=== PATIENT | female | born 1980 | race Caucasian/White ===

== ENCOUNTER 2024-02-09 12:38 | Emergency (ER) | payer MEDICARE, MEDICAID, SELFPAY ==
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
[2024-02-09 12:49] VITALS: BP 139/81; PULSE 88; RESP 15; TEMP 36.9; O2SAT 98
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
[2024-02-09 13:24] LABS: Bilirubin Negative (Negative); Blood Negative (Negative); Clarity Clear (Clear); Glucose Negative (Negative); Ketones Negative (Negative); Leukocyte Esterase Negative (Negative); Nitrite Negative (Negative); Urobilinogen 0.2 mg/dL (Up to 0.2); pH 6.5 (5-8)
[2024-02-09] MEDS: diazePAM 5 MG TAB PO (13:24)
[2024-02-09] MEDS: Pantoprazole 40 MG TABCR PO (13:24)
[2024-02-09] MEDS: PARoxetine 10 MG TAB PO (13:25)
--- NOTE | 2024-02-09 14:16 | NUR.NOTE ---
[facility] #[phone] Giana Laughlin #[phone] ([place]) #[phone] [email or web address] [facility] [phone]
[2024-02-09] MEDS: Buprenorphine/Naloxone 8 mg/2 mg FILM 3 EACH SL (15:07)
--- NOTE | 2024-02-09 15:35 | NUR.NOTE ---
Addendum entered by Anmol Jones RN 02/09/24 16:12: Attempted to DC patient again after she had agreed to come back tomorrow. When I went into the room to go over DC instructions, [facility] and pt both stated taxis and RCT were closed tomorrow so pt would not be able to get back to the ED. I attempted to discuss with the patient that we do not have the ability to arrange transport for her. The patient became frustrated again, stated she cannot leave until we figure out a way for her to get her medications. I attempted to explain (again) that we are the ER and that outside services are why we got [facility] involved (present) for them to assist with services. The patient stated she cannot produce a pharmacy and stated she wanted to speak with the provider again. Provider aksed for care management to consult (again). Care management was initially asked to consult sj the pt first arrived and requested we go through [facility]. [facility] attendant stated to RN that the patient would like to leave. Pt came out of the room, requested to leave and stated she would manipulate my way back here in the morning. She asked for my name, I responded Dilip. I informed the pt that Care management had been consulted. She stated I never told her that. I informed her we initially asked for a consult, they requested we go through [facility], who we got in here to get her services. I explained that since the services from [facility] (R[facility]/transport/taxi) were not going to [place] out for tomorrow, we were trying to see if care management could help. Pt stated she wasn't informed that we called these services. i told her that is because we just contacted them for the second time after I left the room when she refused the DC #2 and that was just a couple minutes ago and were waiting for them to contact us back. the patient asked the [facility] worker what do you want me to do? The [facility] worker explained that she cannot make decisions for her. She stated she [facility], but are technically not supposed to transport people and they cannot bring her to the motel. Pt stated Ill just take the ride. Pt took DC paperwork and left. Care management called shortly after to follow up on 2nd consult request and was informed the pt had been discharged. Anmol Jones, MOISEN, RN Original Note: Attempted to DC patient with [facility] who was called to assist with housing/geriatric social work professor. Pt became angry because she does not have transportation to and from the pharmacy. She also is upset that the provider would not prescribe her suboxone to go home with. Pt was informed she could return to the ED tomorrow for other doses, but insists she has no transportation. It was explained that [facility] is here (in room) and we need to rely on ancillary services for external social support. Pt stated she wanted crisis and would say whatever I need to say to be hospitalized. Attempted to iterate to pt that we are an ER and we cannot provide her transport services to and from pharmacies. Pt stated she did not feel comfortable leaving without her regular medications. I attempted to explain the provider has given her enough of her regular meds for 30 days, her diazepam for 4 days, and the provider was not willing to send her home with suboxone, but she could return tomorrow for it. The patient became escalated and accused ED staff of negotiating her medication. I informed her we do not negotiate medications and felt her behavior was manipulative, and we will not respond to that. Pt stated she wanted crisis and I reported this to MD who then ordered [facility] consult. [facility] arrived, pt stated she did not want crisis and wanted to leave with [facility]. Pt did not screen for HI/SI or any risk for harm, and was leaving with [facility] support person. Pt will return to ED tomorrow for suboxone medication administration. YVETTE Roberts, RN Nursing Note:
== END 2024-02-09 15:56 | disposition home or self-care (01) ==
PROVIDERS: Emergency Provider Emergency Medicine
DX: Z76.0 Encounter for issue of repeat prescription (principal); Z59.812 Housing instability, housed, homelessness in past 12 months; Z53.29 Procedure and treatment not carried out because of patient's decision for other reasons
CPT/HCPCS: 99282; 81003

== ENCOUNTER 2024-02-10 10:15 | Emergency (ER) | payer MEDICARE, MEDICAID, SELFPAY ==
[2024-02-10 10:14] VITALS: BP 150/101; PULSE 99; RESP 16; TEMP 36.8; O2SAT 95
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
[2024-02-10] MEDS: Buprenorphine/Naloxone 12 mg/3 mg FILM 1 EACH SL ×4 (10:46→11:51)
[2024-02-10] MEDS: diazePAM 5 MG TAB PO (10:47)
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
== END 2024-02-10 11:54 | disposition home or self-care (01) ==
PROVIDERS: Emergency Provider Physician Assistant
DX: Z76.0 Encounter for issue of repeat prescription (principal); Z59.811 Housing instability, housed, with risk of homelessness; Z59.41 Food insecurity; Z59.12 Inadequate housing utilities; Z59.82 Transportation insecurity; Z59.89 Other problems related to housing and economic circumstances; Z60.8 Other problems related to social environment
CPT/HCPCS: 00123; 99283

== ENCOUNTER 2024-02-17 15:25 | Emergency (ER) | payer MEDICARE, MEDICAID, SELFPAY ==
[2024-02-17 15:52] VITALS: BP 120/77; PULSE 90; RESP 20; TEMP 36.8; O2SAT 98
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
[2024-02-17 17:48] LABS: Bilirubin Negative (Negative); Blood Negative (Negative); Clarity Clear (Clear); Glucose Negative (Negative); Ketones Negative (Negative); Leukocyte Esterase Negative (Negative); Nitrite Negative (Negative); Specific Gravity 1.015 (1.005-1.025); Urobilinogen 0.2 mg/dL (Up to 0.2)
[2024-02-17 17:51] LABS: HCG Qual (Urine) Negative
[2024-02-17 19:47] VITALS: BP 120/76; PULSE 82; RESP 18; O2SAT 95
[2024-02-17 20:28] VITALS: BP 120/76; PULSE 82; RESP 18; O2SAT 95
[2024-02-19 12:40] LABS: Chlamydia Result Negative (Negative); GC Result Negative (Negative)
== END 2024-02-17 20:28 | disposition home or self-care (01) ==
PROVIDERS: Emergency Provider Physician Assistant
DX: B37.31 Acute candidiasis of vulva and vagina (principal); N39.0 Urinary tract infection, site not specified
CPT/HCPCS: 87491; 87591; 99283; 81003; 81025; 87086; 87480; 87510; 87660